=== PATIENT | female | born 1995 | race Caucasian/White ===

== ENCOUNTER 2017-01-31 04:00 | Emergency (ER) | payer OTHER ==
[2017-01-31 04:45] VITALS: BP 128/84
== END 2017-01-31 04:45 | disposition home or self-care (01) ==
LOC: ED 04:00
DX: R10.13 Epigastric pain (principal); R11.0 Nausea
CPT/HCPCS: Q0162

== ENCOUNTER 2017-02-04 19:05 | Emergency (ER) | payer OTHER ==
[2017-02-04 21:12] LABS: BASOPHIL % 0.7 % (0-2); PLATELET COUNT 214 x10^3mcL (130-400); RED CELL DISTRIBUTION WIDTH 13.1 % (11.5-14.5)
[2017-02-04 21:13] LABS: CALCIUM 9.4 mg/dL (8.5-10.1); CARBON DIOXIDE 27.9 mmol/L (21-32); CHLORIDE SERUM 103 mmol/L (98-107); CREATININE SERUM 0.8 mg/dL (0.6-1.0); GFR1 > 60 mL/min; GLUCOSE SERUM 105 mg/dL (74-106); POTASSIUM SERUM 3.7 mmol/L (3.5-5.1); SODIUM SERUM 139 mmol/L (136-145)
[2017-02-04 21:18] LABS: ALBUMIN 4.2 g/dL (3.4-5.0); ALKALINE PHOSPHATASE 96 U/L (46-116); ALT/SGPT 22 U/L (14-59); AMYLASE 56 U/L (25-115); AST/SGOT 17 U/L (15-37); BILIRUBIN TOTAL 0.4 mg/dL (0.20-1.00); LIPASE 100 IU/L (73-393); TOTAL PROTEIN, SERUM 7.7 g/dL (6.4-8.2)
[2017-02-04 21:58] VITALS: BP 119/66
== END 2017-02-04 22:15 | disposition home or self-care (01) ==
LOC: ED 19:05
PROVIDERS: Emergency Medicine
DX: R10.13 Epigastric pain (principal)
CPT/HCPCS: 36415; 83880; J1885

== ENCOUNTER 2017-04-21 12:55 | Emergency (ER) | payer OTHER ==
[~2017-04-21] VITALS: Ht 165.1 cm; Wt 60.9 kg
[2017-04-21 19:10] VITALS: BP 113/76
== END 2017-04-21 19:10 | disposition home or self-care (01) ==
LOC: ED 12:55
DX: R10.33 Periumbilical pain (principal); R19.7 Diarrhea, unspecified

== ENCOUNTER 2017-08-25 07:01 | Emergency (ER) | payer OTHER ==
[~2017-08-25] VITALS: Ht 165.1 cm; Wt 59.9 kg
[2017-08-25 07:55] VITALS: Ht 165.1 cm; Wt 59.9 kg
[2017-08-25 09:59] VITALS: BP 118/64
== END 2017-08-25 09:59 | disposition home or self-care (01) ==
LOC: ED 07:01
DX: J09.X2 Influenza due to identified novel influenza A virus with other respiratory manifestations (principal)
CPT/HCPCS: 87804

== ENCOUNTER 2018-01-28 16:13 | Emergency (ER) | payer OTHER ==
[~2018-01-28] VITALS: Ht 167.6 cm; Wt 60.8 kg
[2018-01-28 16:17] VITALS: BP 108/60; Ht 167.6 cm; Wt 60.8 kg
== END 2018-01-28 17:01 | disposition home or self-care (01) ==
LOC: ED 16:13
DX: R59.0 Localized enlarged lymph nodes (principal)

== ENCOUNTER 2018-04-25 12:02 | Emergency (ER) | payer OTHER ==
[~2018-04-25] VITALS: Ht 160 cm; Wt 67.6 kg
[2018-04-25 12:07] VITALS: BP 121/70; Ht 160 cm; Wt 67.6 kg
== END 2018-04-25 12:53 | disposition home or self-care (01) ==
LOC: ED 12:02
DX: S70.362A Insect bite (nonvenomous), left thigh, initial encounter (principal); W57.XXXA Bitten or stung by nonvenomous insect and other nonvenomous arthropods, initial encounter; Y93.89 Activity, other specified; Y92.89 Other specified places as the place of occurrence of the external cause; Y99.8 Other external cause status

== ENCOUNTER 2018-05-29 11:12 | Emergency (ER) | payer OTHER ==
[~2018-05-29] VITALS: Ht 165.1 cm; Wt 67.6 kg
[2018-05-29 11:30] VITALS: Ht 165.1 cm; Wt 67.6 kg
[2018-05-29 12:14] LABS: microscopic required? NO
[2018-05-29 12:24] LABS: urine erythrocyte NEGATIVE (NEGATIVE)
[2018-05-29 12:32] LABS: CALCIUM 9.5 mg/dL (8.5-10.1); CARBON DIOXIDE 23.4 mmol/L (21-32); CHLORIDE SERUM 100 mmol/L (98-107); CREATININE SERUM 0.7 mg/dL (0.6-1.0); GFR1 > 60 mL/min; GLUCOSE SERUM 80 mg/dL (74-106); POTASSIUM SERUM 3.8 mmol/L (3.5-5.1); SODIUM SERUM 135 mmol/L (136-145)
[2018-05-29 12:36] LABS: ALBUMIN 4.4 g/dL (3.4-5.0); ALKALINE PHOSPHATASE 72 U/L (46-116); ALT/SGPT 26 U/L (14-59); AST/SGOT 16 U/L (15-37); BILIRUBIN TOTAL 0.8 mg/dL (0.20-1.00); LIPASE 73 IU/L (73-393)
[2018-05-29 12:37] LABS: TOTAL PROTEIN, SERUM 8.3 g/dL (6.4-8.2)
[2018-05-29 13:09] LABS: BASOPHIL % 0.2 % (0-2); PLATELET COUNT 222 x10^3mcL (130-400); RED CELL DISTRIBUTION WIDTH 13.3 % (11.5-14.5)
[2018-05-29 17:02] VITALS: BP 106/67
== END 2018-05-29 17:02 | disposition home or self-care (01) ==
LOC: ED 11:12
PROVIDERS: Emergency Medicine
DX: K52.9 Noninfective gastroenteritis and colitis, unspecified (principal)
CPT/HCPCS: C9113; J1885; J2270; J2405; J2543; J3490; J7030; Q9967

== ENCOUNTER 2019-05-21 19:50 | Emergency (ER) | payer MEDICAID ==
[~2019-05-21] VITALS: Ht 167.6 cm; Wt 68.0 kg
[2019-05-21 20:03] VITALS: Ht 167.6 cm; Wt 68.0 kg
[2019-05-21 21:44] VITALS: BP 105/61
== END 2019-05-21 22:46 | disposition home or self-care (01) ==
LOC: ED 19:50
DX: M54.5 Low back pain (principal); X58.XXXA Exposure to other specified factors, initial encounter; Y93.89 Activity, other specified; Y92.89 Other specified places as the place of occurrence of the external cause; Y99.8 Other external cause status
CPT/HCPCS: J1885; J3010

== ENCOUNTER 2020-09-15 03:48 | Emergency (ER) | payer OTHER, SELFPAY ==
[~2020-09-15] VITALS: Ht 167.6 cm; Wt 68.0 kg
[2020-09-15 06:01] VITALS: BP 100/64
== END 2020-09-15 06:01 | disposition home or self-care (01) ==
LOC: ED 03:48
DX: N39.0 Urinary tract infection, site not specified (principal); Z20.828 Contact with and (suspected) exposure to other viral communicable diseases
CPT/HCPCS: 87804; J0696; U0003